=== PATIENT | female | born 1955 | race Caucasian/White ===

== ENCOUNTER 2019-04-15 16:52 | Emergency (ER) | payer MEDICARE ==
[~2019-04-15] VITALS: Ht 170 cm; Wt 98.3 kg
--- NOTE | 2019-04-15 19:10 | ED Lower Extremity ---
General Chief Complaint: Lower Extremity Stated Complaint: RT KNEE PAIN Nursing Triage Note: Patient ambulatory to ER with complaint of right knee pain. Patient states she had surgery on knee 10 years ago and has chronic pain to the right knee. She has not had any recent injuries to the knee Patient states she is almost out of her medications. Nursing Sepsis Screen: No Definite Risk Source: patient Exam Limitations: no limitations History of Present Illness Date Seen by Provider: Apr 15, 2019 Time Seen by Provider: 18:30 Initial Comments Here with report of chronic right knee pain that has been worse over the past couple of months. She is new to this area and has to get a new doctor. She has been told that she had arthritis of the knee. She's had previous arthroscopy. She has been taken Naprosyn 2 tabs in the morning and ibuprofen 800 mg in the evening as well as and Excedrin headache type medicine in the evening. Denies any new injury. Pain mostly on the lateral aspect of the right knee. Onset: other (chronic) Severity: moderate Pain/Injury Location: right knee Method of Injury: unknown Modifying Factors: Improves With Immobilization; Worse With Movement Allergies and Home Medications Allergies Coded Allergies: haloperidol (Verified Allergy, Severe, Anaphylaxis, 04/15/19) Home Medications Hydrocodone Bit/Acetaminophen 1 Tab Tab, 1 EACH PO Q4-6HR PRN for PAIN-MODERATE Prescribed by: JOHN VALENZUELA on 04/15/191913 Patient Home Medication List Home Medication List Reviewed: Yes Review of Systems Constitutional: see HPI; No chills, No fever Respiratory: no symptoms reported Cardiovascular: no symptoms reported Musculoskeletal: see HPI, joint pain, joint swelling Skin: no symptoms reported Past Couzqxi-Twwfbi-Cxtmqn Hx Past Med/Social Hx: Reviewed Nursing Past Med/Soc Hx Patient Social History Alcohol Use: Occasionally Uses Recreational Drug Use: No Smoking Status: Former Smoker Recent Foreign Travel: No Contact w/Someone Who Travel: No Recent Infectious Disease Expo: No Recent Hopitalizations: No Seasonal Allergies Seasonal Allergies: No Past Medical History Surgeries: Yes Appendectomy, Section, Gallbladder, Orthopedic Respiratory: No Cardiac: Yes Hypertension Neurological: Yes Neuropathy Genitourinary: No Gastrointestinal: Yes Gastroesophageal Reflux Musculoskeletal: No HEENT: No Cancer: No Psychosocial: No Integumentary: No Family Medical History Reviewed Nursing Family Hx Physical Exam Vital Signs Vital Signs - First Documented 04/15/19 17:19 Temp 35.6 Pulse 80 Resp 14 B/P (MAP) 150/93 (112) Pulse Ox 96 O2 Delivery Room Air Capillary Refill : Less Than 3 Seconds Height, Weight, BMI Height: '" Weight: lbs. oz. kg; 34.00 BMI Method: General Appearance: WD/WN, no apparent distress Cardiovascular: regular rate, rhythm, no murmur Respiratory: lungs clear, normal breath sounds Knees: right knee soft tissue tenderness (bilateral anterior), right knee swelling (mild effusion noted.), right knee other (lateral aspect with palpation and pressure. Negative anterior and posterior drawer.) Neurologic/Psychiatric: alert, oriented x 3 Skin: normal color, warm/dry Progress/Results/Core Measures Results/Orders My Orders Orders - JOHN VALENZUELA MD Knee, Right, 3 Views (04/15/19 18:38) Vital Signs/I&O 04/15/19 17:19 Temp 35.6 Pulse 80 Resp 14 B/P (MAP) 150/93 (112) Pulse Ox 96 O2 Delivery Room Air Blood Pressure Mean: 112 Progress Progress Note : Progress Note Seen and evaluated. X-ray right knee. I did discuss with her about follow-up and tbxb-tvq-mijughl medication dosing. Discharge home with return precautions. Patient verbalize understanding instructions and agreement with plan. Departure Impression Primary Impression: Osteoarthritis Qualified Codes: M17.11 - Unilateral primary osteoarthritis, right knee Disposition: 01 HOME, SELF-CARE Condition: Stable Departure-Patient Inst. Decision time for Depature: 19:10 Referrals: JANET GAR MD ,LOCAL PHYSICIAN (PCP) Primary Care Physician MADONNA BOWDEN MD, ROBERT F DO ZAFUTA, MICHAEL P MD Patient Instructions: Chronic Knee Pain (DC), Osteoarthritis (DC) Add. Discharge Instructions: All discharge instructions reviewed with patient and/or family. Voiced understanding. You may take tqce-xod-tiiccpy Naprosyn/Aleve 2 tablets in the morning and consider just taking 1 in the evening. If you're taking the Naprosyn/Aleve like this then do not take ibuprofen as they are similar medications. Do not exceed 2 tablets of the qehk-tlq-hfvdthh Naprosyn/Aleve every 12 hours. You may take Tylenol/acetaminophen 1000 mg every 6-8 hours as needed for breakthrough pain. Do not exceed 4000 mg in 24 hours. Do not take the Tylenol/acetaminophen if you are taking the prescribed pain medicine as they both have acetaminophen in them. You may use knee brace for comfort. It is very important that you find a local physician and also important that you follow-up with an orthopedist as you will likely need to have further evaluation of this knee. Return for worse pain, weakness, swelling, numbness or other concerns as needed. Scripts Hydrocodone Bit/Acetaminophen (Hydrocodone/Acetaminophen 5/325mg Tablet) 1 Tab Tab 1 EACH PO Q4-6HR PRN for PAIN-MODERATE MDD 10 for 3 Days, #10 TAB 0 Refills Prov: JOHN VALENZUELA MD 04/15/19 Work/School Note: Local Medical Staff Listing JOHN VALENZUELA MD Apr 15, 2019 19:10
[2019-04-15] MEDS ORDERED: ACHD5005 PO (19:14)
--- NOTE | 2019-04-15 19:24 | Diagnostic Imaging Report ---
EXAMINATION: Right knee at 7:11 p.m. INDICATION: Knee pain. Three views were obtained. There are no prior studies available for comparison. FINDINGS: There is no fracture, dislocation, or acute bony abnormality evident. There is moderate narrowing of all three compartments of the knee joint. Furthermore, there is a small 5 mm calcific density along the inferior margin of the medial femoral condyle on both the AP and oblique views. This finding is difficult to appreciate with certainty on the lateral view, but this could represent a small loose body within the knee joint. The soft tissues are unremarkable. There is perhaps a small joint effusion present. IMPRESSION: 1. There is no evidence for an acute bony abnormality. 2. There is moderate tricompartmental degenerative disease evident. There is also a question of a small loose body. If further imaging is desired, then either CT or MRI would be recommended. Dictated by: Dictated on workstation # [id number]
[2019-04-15 19:36] VITALS: BP 145/91
== END 2019-04-15 19:37 | disposition home or self-care (01) ==
LOC: ER 16:56
DX: M17.11 Unilateral primary osteoarthritis, right knee (principal); I10 Essential (primary) hypertension; G62.9 Polyneuropathy, unspecified; K21.9 Gastro-esophageal reflux disease without esophagitis; Z88.8 Allergy status to other drugs, medicaments and biological substances; Z87.891 Personal history of nicotine dependence; Z90.49 Acquired absence of other specified parts of digestive tract
CPT/HCPCS: 73562

== ENCOUNTER 2019-05-20 14:59 | Emergency (ER) | payer MEDICARE, OTHER ==
[~2019-05-20] VITALS: Ht 177.8 cm; Wt 91.3 kg
[~2019-05-20 14:59] MED LIST: ACHD5005 PO
[2019-05-20] MEDS ORDERED: ASPIRIN 81 MG CHEW (CHILDREN'S ASA) PO ONE (15:15)
[2019-05-20 15:18] LABS: BASOPHILS # (AUTO) 0.1 10^3/uL (0.0-0.1); BASOPHILS % (AUTO) 1 % (0-10); EOSINOPHILS # (AUTO) 0.3 10^3/uL (0.0-0.3); EOSINOPHILS % (AUTO) 2 % (0-10); HEMATOCRIT 45 % (35-52); HEMOGLOBIN 15.2 G/DL (11.5-16.0); LYMPHOCYTES # (AUTO) 3.6 X 10^3 (1.0-4.0); LYMPHOCYTES % (AUTO) 23 % (12-44); MEAN CORPUSCULAR HEMOGLOBIN 30 PG (25-34); MEAN CORPUSCULAR HGB CONC 34 G/DL (32-36); MEAN CORPUSCULAR VOLUME 89 FL (80-99); MEAN PLATELET VOLUME 10.1 FL (7.4-10.4); MONOCYTES # (AUTO) 1.1 X 10^3 (0.0-1.0); MONOCYTES % (AUTO) 7 % (0-12); NEUTROPHILS # (AUTO) 10.3 X 10^3 (1.8-7.8); NEUTROPHILS % (AUTO) 67 % (42-75); PLATELET COUNT 311 10^3/uL (130-400); RED CELL DISTRIBUTION WIDTH 15.4 % (10.0-14.5); WHITE BLOOD COUNT 15.3 10^3/uL (4.3-11.0)
--- NOTE | 2019-05-20 15:18 | NUR ---
NO MED LIST WITH PATINT AND UNSURE OF MEDS.
[2019-05-20 15:29] LABS: PROTHROMBIN TIME PATIENT 13.8 SEC (12.2-14.7)
[2019-05-20 15:37] LABS: BAND NEUTROPHILS 0 %; BASOPHILS % (MANUAL) 1 %; EOSINOPHILS % (MANUAL) 3 %; LYMPHOCYTES % (MANUAL) 29 %; MONOCYTES % (MANUAL) 4 %; NEUTROPHILS % (MANUAL) 63 %; RBC MORPH NORMAL
[2019-05-20 15:41] LABS: ALANINE AMINOTRANSFERASE 51 U/L (0-55); ALBUMIN 4.3 GM/DL (3.2-4.5); ALKALINE PHOSPHATASE 135 U/L (40-136); BUN/CREATININE RATIO 13; CALCIUM 9.9 MG/DL (8.5-10.1); CARBON DIOXIDE 25 MMOL/L (21-32); CHLORIDE 103 MMOL/L (98-107); CREATININE SERUM 1.63 MG/DL (0.60-1.30); GFR ESTIMATED 32; GLUCOSE 137 MG/DL (70-105); LIPASE 15 U/L (8-78); POTASSIUM 3.6 MMOL/L (3.6-5.0); SODIUM 140 MMOL/L (135-145); TOTAL PROTEIN 7.6 GM/DL (6.4-8.2)
[2019-05-20 16:35] LABS: BILIRUBIN,TOTAL 0.6 MG/DL (0.1-1.0)
--- NOTE | 2019-05-20 16:42 | Diagnostic Imaging Report ---
INDICATION: Anterior chest heaviness. TIME OF EXAM: 4:13 p.m. COMPARISON: No prior studies are available for comparison. FINDINGS: The heart size is normal. The pulmonary vascularity is unremarkable. The lungs are clear. No infiltrate, effusion or pneumothorax is detected. IMPRESSION: No acute cardiopulmonary process is detected. Dictated by: Dictated on workstation # [id number]
[2019-05-20] MEDS ORDERED: NS IV 1000 ML 1,000 ML IV ONE (17:06)
--- NOTE | 2019-05-20 18:32 | ED Chest Pain ---
General Chief Complaint: Chest Pain Stated Complaint: CHEST PAIN Nursing Triage Note: AMB TO ROOM CAME FROM DR NEGRO OFFICE WAS THERE FOR MEDICATION CHANGE. Nursing Sepsis Screen: No Definite Risk Source: patient Exam Limitations: no limitations History of Present Illness Date Seen by Provider: May 20, 2019 Time Seen by Provider: 15:01 Initial Comments This 64-year-old woman presents to the emergency room as referred by Dr. NEGRO's clinic for evaluation of chest pain. She had an episode of chest pressure last night radiating up toward her left neck. She reports her ears felt like they were "going to burst" at the time of the pain. The pain lasted 1-2 hours. She then had another episode today while she was at Dr. NEGRO's office. Pain had subsided by the time of my evaluation. Patient has no history of coronary artery disease and has never had any cardiac workup. She quit smoking about one year ago. She has hypertension. Allergies and Home Medications Allergies Coded Allergies: haloperidol (Verified Allergy, Severe, Anaphylaxis, 04/15/19) Home Medications Hydrocodone Bit/Acetaminophen 1 Tab Tab, 1 EACH PO Q4-6HR PRN for PAIN-MODERATE Prescribed by: JOHN VALENZUELA on 04/15/19 1914 Tramadol HCl 50 Mg Tablet, 50 MG PO Q6H PRN for PAIN-SEVERE (8-10) Prescribed by: ASIA CLEANING on 05/20/19 1835 Patient Home Medication List Home Medication List Reviewed: Yes Review of Systems Review of Systems Constitutional: no symptoms reported EENTM: No Symptoms Reported Respiratory: No Symptoms Reported Cardiovascular: See HPI Gastrointestinal: No Symptoms Reported Genitourinary: No Symptoms Reported Musculoskeletal: no symptoms reported Skin: no symptoms reported Psychiatric/Neurological: No Symptoms Reported Endocrine: No Symptoms Reported Past Oughsuy-Nwifgo-Hxssiq Hx Past Med/Social Hx: Reviewed and Corrections made Patient Social History Alcohol Use: Denies Use Recreational Drug Use: No Smoking Status: Former Smoker Recent Foreign Travel: No Contact w/Someone Who Travel: No Recent Infectious Disease Expo: No Recent Hopitalizations: No Seasonal Allergies Seasonal Allergies: No Past Medical History Surgeries: Yes Appendectomy, Section, Gallbladder, Orthopedic, Renal (Ureteral stent, basket retrieval, lithotripsy) Respiratory: No Cardiac: Yes Hypertension Neurological: Yes Neuropathy Genitourinary: Yes Kidney Stones Gastrointestinal: Yes Gastroesophageal Reflux Musculoskeletal: No HEENT: No Cancer: No Psychosocial: No Integumentary: No Physical Exam Vital Signs Vital Signs - First Documented 05/20/19 05/20/19 15:02 19:00 Temp 36.5 Pulse 87 Resp 18 B/P (MAP) 117/72 (87) Pulse Ox 98 O2 Delivery Room Air Capillary Refill : Less Than 3 Seconds Height, Weight, BMI Height: '" Weight: lbs. oz. 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 Norm as Tested Skin: Normal Color, Warm/Dry Progress/Results/Core Measures Results/Orders Lab Results Laboratory Tests Test 05/20/19 15:08 05/20/19 17:09 Range/Units White Blood Count 15.3 H 4.3-11.0 10^3/uL Red Blood Count 5.11 4.35-5.85 10^6/uL Hemoglobin 15.2 11.5-16.0 G/DL Hematocrit 45 35-52 % Mean Corpuscular Volume 89 80-99 FL Mean Corpuscular Hemoglobin 30 25-34 PG Mean Corpuscular Hemoglobin Concent 34 32-36 G/DL Red Cell Distribution Width 15.4 H 10.0-14.5 % Platelet Count 311 130-400 10^3/uL Mean Platelet Volume 10.1 7.4-10.4 FL Neutrophils (%) (Auto) 67 42-75 % Lymphocytes (%) (Auto) 23 12-44 % Monocytes (%) (Auto) 7 0-12 % Eosinophils (%) (Auto) 2 0-10 % Basophils (%) (Auto) 1 0-10 % Neutrophils # (Auto) 10.3 H 1.8-7.8 X 10^3 Lymphocytes # (Auto) 3.6 1.0-4.0 X 10^3 Monocytes # (Auto) 1.1 H 0.0-1.0 X 10^3 Eosinophils # (Auto) 0.3 0.0-0.3 10^3/uL Basophils # (Auto) 0.1 0.0-0.1 10^3/uL Neutrophils % (Manual) 63 % Lymphocytes % (Manual) 29 % Monocytes % (Manual) 4 % Eosinophils % (Manual) 3 % Basophils % (Manual) 1 % Band Neutrophils 0 % Blood Morphology Comment NORMAL Prothrombin Time 13.8 12.2-14.7 SEC INR Comment 1.0 0.8-1.4 Activated Partial Thromboplast Time 35 24-35 SEC Sodium Level 140 135-145 MMOL/L Potassium Level 3.6 3.6-5.0 MMOL/L Chloride Level 103 98-107 MMOL/L Carbon Dioxide Level 25 21-32 MMOL/L Anion Gap 12 5-14 MMOL/L Blood Urea Nitrogen 22 H 7-18 MG/DL Creatinine 1.63 H 0.60-1.30 MG/DL Estimat Glomerular Filtration Rate 32 BUN/Creatinine Ratio 13 Glucose Level 137 H 70-105 MG/DL Calcium Level 9.9 8.5-10.1 MG/DL Corrected Calcium 9.7 8.5-10.1 MG/DL Magnesium Level 2.0 1.6-2.4 MG/DL Total Bilirubin 0.6 0.1-1.0 MG/DL Aspartate Amino Transf (AST/SGOT) 25 5-34 U/L Alanine Aminotransferase (ALT/SGPT) 51 0-55 U/L Alkaline Phosphatase 135 40-136 U/L Myoglobin 108.4 H 10.0-92.0 NG/ML Troponin I < 0.028 < 0.028 <0.028 NG/ML C-Reactive Protein High Sensitivity 1.34 H 0.00-0.50 MG/DL B-Type Natriuretic Peptide < 10.0 <100.0 PG/ML Total Protein 7.6 6.4-8.2 GM/DL Albumin 4.3 3.2-4.5 GM/DL Lipase 15 13 8-78 U/L My Orders Orders - TODD HUYNH MD Hs C Reactive Protein (05/20/19 16:45) Lipase (05/20/19 16:58) Troponin I (05/20/19 17:08) Ed Iv/Invasive Line Start (05/20/19 17:06) Ns Iv 1000 Ml (Sodium Chloride 0.9%) (05/20/19 17:06) Medications Given in ED Vital Signs/I&O 05/20/19 05/20/19 15:02 19:00 Temp 36.5 Pulse 87 70 Resp 18 18 B/P (MAP) 117/72 (87) 133/91 Pulse Ox 98 94 O2 Delivery Room Air Blood Pressure Mean: 87 POS Progress Progress Note : Progress Note Cardiac workup was unremarkable. Patient had leukocytosis likely due to recent steroid injection at her orthopedic office. Repeat troponin was negative. Renal insufficiency was noted and a liter of IV fluid was administered. I stressed the importance of further evaluation and consultation with a cardiolog ist. Patient is agreeable to follow-up. She also needs to follow-up with Dr. NEGRO regarding her renal function. She was advised to avoid NSAID medications and was prescribed a few Ultram to bridge her pain management. Initial ECG Impression Date: May 20, 2019 Initial ECG Impression Time: 15:05 Initial ECG Rate: 85 Initial ECG Rhythm: Normal Sinus Initial ECG Intervals: Normal Initial ECG Impression: Normal Comment Normal sinus rhythm with no ST elevation or depression. No abnormal intervals or axis deviation. Diagnostic Imaging Diagonstic Imaging: Xray Plain Films/CT/US/NM/MRI: chest Comments Chest x-ray viewed by me and report reviewed. See report below: NAME: NOAH TORRES [facility] REC#: [id number] PT STATUS: REG ER : 1955 PHYSICIAN: ASIA CLEANING APRN ADMIT DATE: 05/20/19/ER Signed Date of Exam:05/20/19 CHEST 1 VIEW, AP/PA ONLY INDICATION: Anterior chest heaviness. TIME OF EXAM: 4:13 p.m. COMPARISON: No prior studies are available for comparison. FINDINGS: The heart size is normal. The pulmonary vascularity is unremarkable. The lungs are clear. No infiltrate, effusion or pneumothorax is detected. IMPRESSION: No acute cardiopulmonary process is detected. Dictated by: Dictated on workstation # [id number] Dict: 05/20/19 1627 Trans: 05/20/194 [id number] Interpreted by: JENNY MATTHEWS MD Electronically signed by: JENNY MATTHEWS MD 05/20/19 1814 Departure Impression Primary Impression: Chest pain Qualified Codes: R07.9 - Chest pain, unspecified Additional Impression: Renal insufficiency Disposition: 01 HOME, SELF-CARE Condition: Improved Departure-Patient Inst. Decision time for Depature: 18:20 Referrals: TRINITY NEGRO DO (PCP) Primary Care Physician Patient Instructions: Chest Pain (DC) Scripts Tramadol HCl (Ultram) 50 Mg Tablet 50 MG PO Q6H PRN for PAIN-SEVERE (8-10), #10 TAB Prov: ASIA CLEANING BOOKING PRIZER 05/20/19 Copy Copies To 1: TRINITY NEGRO DO Copies To 2: MARIA GUADALUPE BEAL MD, JOSHUA T MD May 20, 2019 18:32 POS
[2019-05-20] MEDS ORDERED: TRAM-42 PO (18:35)
[2019-05-20 19:00] VITALS: BP 133/91
== END 2019-05-20 19:00 | disposition home or self-care (01) ==
LOC: EDUNIT# 14:59 → ER 15:00
DX: R07.9 Chest pain, unspecified (principal); N28.9 Disorder of kidney and ureter, unspecified; I10 Essential (primary) hypertension; G62.9 Polyneuropathy, unspecified; K21.9 Gastro-esophageal reflux disease without esophagitis; Z87.442 Personal history of urinary calculi; Z88.8 Allergy status to other drugs, medicaments and biological substances; Z87.891 Personal history of nicotine dependence; Z90.49 Acquired absence of other specified parts of digestive tract
CPT/HCPCS: 36415; 71045; 80053; 83690; 83735; 83874; 83880; 84484; 85007; 85025; 85027; 85610; 85730; 86141; 93005; 93041; 96360; 96361

== ENCOUNTER 2019-08-12 23:00 | Emergency (ER) | payer MEDICARE, OTHER ==
[~2019-08-12] VITALS: Ht 170 cm; Wt 91.3 kg
[~2019-08-12 23:00] MED LIST changes: +TRAM-42 PO
[2019-08-12] MEDS ORDERED: LACTATED RINGERS 1,000 ML IV ONE (23:07)
[2019-08-12 23:24] LABS: BASOPHILS # (AUTO) 0.1 10^3/uL (0.0-0.1); BASOPHILS % (AUTO) 1 % (0-10); EOSINOPHILS # (AUTO) 0.2 10^3/uL (0.0-0.3); EOSINOPHILS % (AUTO) 2 % (0-10); HEMATOCRIT 36 % (35-52); LYMPHOCYTES # (AUTO) 2.8 X 10^3 (1.0-4.0); LYMPHOCYTES % (AUTO) 30 % (12-44); MEAN CORPUSCULAR HEMOGLOBIN 30 PG (25-34); MEAN CORPUSCULAR HGB CONC 33 G/DL (32-36); MEAN CORPUSCULAR VOLUME 90 FL (80-99); MEAN PLATELET VOLUME 9.7 FL (7.4-10.4); MONOCYTES # (AUTO) 0.8 X 10^3 (0.0-1.0); MONOCYTES % (AUTO) 9 % (0-12); NEUTROPHILS # (AUTO) 5.6 X 10^3 (1.8-7.8); NEUTROPHILS % (AUTO) 59 % (42-75); PLATELET COUNT 234 10^3/uL (130-400); RED CELL DISTRIBUTION WIDTH 14.1 % (10.0-14.5); WHITE BLOOD COUNT 9.5 10^3/uL (4.3-11.0)
[2019-08-12 23:44] LABS: ALANINE AMINOTRANSFERASE 20 U/L (0-55); ALBUMIN 3.9 GM/DL (3.2-4.5); ALKALINE PHOSPHATASE 172 U/L (40-136); BILIRUBIN,TOTAL 0.3 MG/DL (0.1-1.0); BUN/CREATININE RATIO 13; CALCIUM 8.5 MG/DL (8.5-10.1); CARBON DIOXIDE 19 MMOL/L (21-32); CHLORIDE 109 MMOL/L (98-107); CREATININE SERUM 0.83 MG/DL (0.60-1.30); GFR ESTIMATED > 60; GLUCOSE 101 MG/DL (70-105); SODIUM 141 MMOL/L (135-145); TOTAL PROTEIN 6.7 GM/DL (6.4-8.2)
[2019-08-12] MEDS ORDERED: KETOROLAC 30 MG/ML VIAL IVP STA (23:54)
--- NOTE | 2019-08-12 23:54 | ED Fall/Injury ---
General Chief Complaint: Trauma-Non Activation Stated Complaint: FALL Nursing Triage Note: fall from standing position. hematoma to left forehead. no loc. Source: patient Exam Limitations: no limitations History of Present Illness Date Seen by Provider: Aug 12, 2019 Time Seen by Provider: 23:03 Initial Comments Here with report of fall from a standing position while at the bar. She was apparently drinking margaritas throughout the evening. She had gone to the bathroom at a new bar that she had gone to and got dizzy and fell and hit her head over the left brow. No bleeding. No loss of consciousness. Still a little dizzy now. EMS was summoned. She was able to walk with assistance to the cot but was a little dizzy. Did have episode of nausea and vomiting. She was given Zofran 4 mg IV by EMS and the nausea has improved. Denies other injury. Denies loss of consciousness. Arrives in c-collar. Location Injury Occurred: 505 Occurred: just prior to arrival Severity: mild Injuries/Pain Location: head Context: lost balance Loss of Consciousness: no loss of consciousness Modifying Factors: Improves With Rest Associated Symptoms (Fall): No Abdominal Pain, No Chest Pain, No Confusion; Headache, Nausea/Vomiting; No Neck Pain, No Shortness of Air Allergies and Home Medications Allergies Coded Allergies: haloperidol (Verified Allergy, Severe, Anaphylaxis, 04/15/19) Home Medications Hydrocodone Bit/Acetaminophen 1 Tab Tab, 1 EACH PO Q4-6HR PRN for PAIN-MODERATE Prescribed by: JOHN VALENZUELA on 04/15/191913 Tramadol HCl 50 Mg Tablet, 50 MG PO Q6H PRN for PAIN-SEVERE (8-10) Prescribed by: ASIA CLEANING on 05/20/19 183 Patient Home Medication List Home Medication List Reviewed: Yes Review of Systems Review of Systems Constitutional: see HPI; No chills, No fever Eyes: No Symptoms Reported; Denies Blurred Vision, Denies Vision Changes Ears, Nose, Mouth, Throat: no symptoms reported Respiratory: no symptoms reported Gastrointestinal: see HPI Musculoskeletal: No back pain, No neck pain Skin: change in color, lesions Psychiatric/Neurological: See HPI Past Scfpwad-Iyhzra-Hbnpby Hx Past Med/Social Hx: Reviewed Nursing Past Med/Soc Hx Patient Social History Alcohol Use: Rarely Uses Alcohol Beverage of Choice: Other Recreational Drug Use: No Recent Foreign Travel: No Contact w/Someone Who Travel: No Recent Infectious Disease Expo: No Recent Hopitalizations: No Physical Abuse: No Sexual Abuse: No Mistreated: No Fear: No Immunizations Up To Date Tetanus Booster (TDap): Unknown Seasonal Allergies Seasonal Allergies: No Past Medical History Surgeries: Yes Appendectomy, Section, Gallbladder, Orthopedic, Renal Respiratory: No Cardiac: Yes Hypertension Neurological: Yes Neuropathy : No PHARMACY SERVICES DIRECTOR History: Menopausal Genitourinary: Yes Kidney Stones Gastrointestinal: Yes Gastroesophageal Reflux Musculoskeletal: No HEENT: No Cancer: No Psychosocial: No Integumentary: No Family Medical History Reviewed Nursing Family Hx Physical Exam Vital Signs Vital Signs - First Documented 08/12/19 23:00 Temp 36.6 Pulse 55 Resp 18 B/P (MAP) 137/79 (98) Pulse Ox 97 O2 Delivery Room Air Capillary Refill : Less Than 3 Seconds Height, Weight, BMI Height: '" Weight: lbs. oz. kg; 31.00 BMI Method: General Appearance: WD/WN, mild distress HEENT: PERRL/EOMI, pharynx normal, other (4x6 cm hematoma over the left brow) Neck: non-tender, supple Cardiovascular: regular rate, rhythm, no murmur Respiratory: lungs clear, normal breath sounds Gastrointestinal: non tender, soft Back: normal inspection, no CVA tenderness, no vertebral tenderness Extremities: non-tender, normal inspection Neurologic/Psychiatric: alert, oriented x 3 Skin: warm/dry, ecchymosis (ecchymotic area over her left brow as described above), other (. No lacerations noted.) Progress/Results/Core Measures Results/Orders Lab Results Laboratory Tests Test 08/12/19 23:05 Range/Units White Blood Count 9.5 4.3-11.0 10^3/uL Red Blood Count 4.02 L 4.35-5.85 10^6/uL Hemoglobin 12.0 11.5-16.0 G/DL Hematocrit 36 35-52 % Mean Corpuscular Volume 90 80-99 FL Mean Corpuscular Hemoglobin 30 25-34 PG Mean Corpuscular Hemoglobin Concent 33 32-36 G/DL Red Cell Distribution Width 14.1 10.0-14.5 % Platelet Count 234 130-400 10^3/uL Mean Platelet Volume 9.7 7.4-10.4 FL Neutrophils (%) (Auto) 59 42-75 % Lymphocytes (%) (Auto) 30 12-44 % Monocytes (%) (Auto) 9 0-12 % Eosinophils (%) (Auto) 2 0-10 % Basophils (%) (Auto) 1 0-10 % Neutrophils # (Auto) 5.6 1.8-7.8 X 10^3 Lymphocytes # (Auto) 2.8 1.0-4.0 X 10^3 Monocytes # (Auto) 0.8 0.0-1.0 X 10^3 Eosinophils # (Auto) 0.2 0.0-0.3 10^3/uL Basophils # (Auto) 0.1 0.0-0.1 10^3/uL Sodium Level 141 135-145 MMOL/L Potassium Level 3.0 L 3.6-5.0 MMOL/L Chloride Level 109 H 98-107 MMOL/L Carbon Dioxide Level 19 L 21-32 MMOL/L Anion Gap 13 5-14 MMOL/L Blood Urea Nitrogen 11 7-18 MG/DL Creatinine 0.83 0.60-1.30 MG/DL Estimat Glomerular Filtration Rate > 60 BUN/Creatinine Ratio 13 Glucose Level 101 70-105 MG/DL Calcium Level 8.5 8.5-10.1 MG/DL Corrected Calcium 8.6 8.5-10.1 MG/DL Total Bilirubin 0.3 0.1-1.0 MG/DL Aspartate Amino Transf (AST/SGOT) 21 5-34 U/L Alanine Aminotransferase (ALT/SGPT) 20 0-55 U/L Alkaline Phosphatase 172 H 40-136 U/L Total Protein 6.7 6.4-8.2 GM/DL Albumin 3.9 3.2-4.5 GM/DL Serum Alcohol 140 H <10 MG/DL My Orders Orders - JOHN VALENZUELA MD Ct Head/Cervical Spine Wo (08/12/19 23:07) Cbc With Automated Diff (08/12/19 23:07) Comprehensive Metabolic Panel (08/12/19 23:07) Ed Iv/Invasive Line Start (08/12/19 23:07) Lactated Ringers (Lr 1000 Ml Iv Solution (08/12/19 23:07) Alcohol (08/12/19 23:07) Ondansetron Injection (Zofran Injectio (2/12/20 00:00) Ketorolac Injection (Toradol Injection) (08/12/19 23:54) Medications Given in ED Current Medications Medications Dose Ordered Sig/Evelyn Route Start Time Stop Time Status Last Admin Dose Admin Lactated Ringer's 1,000 ml @ 0 mls/hr Q0M ONCE IV 08/12/19 23:07 08/12/19 23:10 DC 08/12/19 23:19 0 MLS/HR Ondansetron HCl 4 mg ONCE ONCE IVP 08/13/19 00:00 08/13/19 00:01 DC 08/13/19 00:00 4 MG Vital Signs/I&O 08/12/19 23:00 Temp 36.6 Pulse 55 Resp 18 B/P (MAP) 137/79 (98) Pulse Ox 97 O2 Delivery Room Air Blood Pressure Mean: 98 Progress Progress Note : Progress Note Seen and evaluated. IV by EMS. Labs and LR [address] head and C- spine ordered. Monitor patient. 2354: C collar removed. Full range of motion without pain after. No step-off or deformity noted. No pain on palpation. Does have headache. No obvious intracranial hemorrhage noted on CT. Toradol 30 mg IV and Zofran 4 mg IV for mild residual nausea. Pending final CT results. 1233: CT is negative. Discharged home with return precautions. Patient verbalize understanding instructions and agreement with plan. Diagnostic Imaging Diagonstic Imaging: CT Plain Films/CT/US/NM/MRI: c-spine, head Comments Large left frontal scalp hematoma. No skull fracture or intracranial hemorrhage. Cervical spondylosis. No evidence of cervical fracture. Reviewed: Reviewed Night [facility] Study, Reviewed by Me Departure Impression Primary Impression: Traumatic hematoma of face Qualified Codes: S00.83XA - Contusion of other part of head, initial encounter Additional Impression: Head injury Qualified Codes: S09.90XA - Unspecified injury of head, initial encounter Disposition: HOME, SELF-CARE Condition: Improved Departure-Patient Inst. Decision time for Depature: 00:08 Referrals: TRINITY NEGRO DO (PCP) Primary Care Physician NO,LOCAL PHYSICIAN (Family) Primary Care Physician Patient Instructions: Closed Head Injury (DC), Contusion (DC) Add. Discharge Instructions: All discharge instructions reviewed with patient and/or family. Voiced understanding. You may take Tylenol or ibuprofen as needed for pain per package directions. Use ice packs over facial contusion 20 minutes per hour as needed for the next one to 2 days to reduce swelling and pain. Drink plenty of fluids and eat a normal diet. Avoid alcohol. Return for worse pain, vomiting, weakness, vision or balance problems or other concerns as needed. Images Head/Face 1 - Moderate, Contusion, Swelling JOHN VALENZUELA MD Aug 12, 2019 23:54
[2019-08-13] MEDS ORDERED: ONDANSETRON 4 MG/2 ML (SDV) Z0FRAN IVP ONE
[2019-08-13 00:39] VITALS: BP 172/82
--- NOTE | 2019-08-13 07:12 | Diagnostic Imaging Report ---
PROCEDURE: CT head and CT cervical spine without contrast. TECHNIQUE: Multiple contiguous axial images were obtained through the brain and cervical spine without the use of intravenous contrast. Sagittal and coronal reformations through the cervical spine were then performed. Auto Exposure Controls were utilized during the CT exam to meet ALARA standards for radiation dose reduction. INDICATION: Fall. Hematoma of the left frontal scalp. FINDINGS: CT HEAD: There is no intracranial hemorrhage. No mass effect. No extra-axial fluid collection. Ventricles and cortical gyral pattern are normal. There is large scalp hematoma noted over the left supraorbital region. There are no calvarial fractures demonstrated. Paranasal sinuses were visualized are clear as are the mastoid air cells. There is noted dental caries with cystic change about the root of the remaining incisor tooth on the left. IMPRESSION: 1. Large left frontal scalp hematoma with no intracranial abnormalities. 2. Dental caries. CT cervical spine: Sagittal reformatted images show loss of normal lordotic curve. No evidence of compression fractures. There is moderate spinal stenosis from C4 through C7. Odontoid is intact. The atlantoaxial joints in good alignment. Soft tissues appear normal. IMPRESSION: Advanced cervical spondylosis with no acute abnormalities. Dictated by: Dictated on workstation # [id number]
--- OUTSIDE RECORDS SUMMARY | 2019-08-22 20:50 | XMS REPORT | Continuity of Care Document ---
Author Organization Unknown Address Unknown Phone Unavailable Allergies Active Description Code Type Severity Reaction Onset Reported/Identified Relationship to Patient Clinical Status Yes haloperidol [id number] Drug Aller gy Severe Anaphylaxis 04/15/2019 Medications There is no data. Problems Date Dx Coded Attending Type Code Diagnosis Diagnosed By 04/15/2019 JOHN VALENZUELA MD, Ot G62.9 POLYNEUROPATHY, UNSPECIFIED 04/15/2019 JOHN VALENZUELA MD Ot I10 ESSENTIAL (PRIMARY) HYPERTENSION 04/15/2019 JOHN VALENZUELA MD Ot K21.9 GASTRO-ESOPHAGEAL REFLUX DISEASE WITHOUT 04/15/2019 JOHN VALENZUELA MD Ot M17.11 UNILATERAL PRIMARY OSTEOARTHRITIS, RIGHT 04/15/2019 JOHN VALENZUELA MD Ot M25.561 PAIN IN RIGHT KNEE 04/15/2019 JOHN VALENZUELA MD Ot Z87.891 PERSONAL HISTORY OF NICOTINE DEPENDENCE 04/15/2019 JOHN VALENZUELA MD Ot Z88.8 ALLERGY STATUS TO OTH DRUG/MEDS/BIOL SUB 04/15/2019 JOHN VALENZUELA MD Ot Z90.49 ACQUIRED ABSENCE OF OTHER SPECIFIED PART 04/18/2019 JOHN VALENZUELA MD Ot G62.9 POLYNEUROPATHY, UNSPECIFIED 04/18/2019 JOHN VALENZUELA MD Ot I10 ESSENTIAL (PRIMARY) HYPERTENSION 04/18/2019 JOHN VALENZUELA MD Ot K21.9 GASTRO-ESOPHAGEAL REFLUX DISEASE WITHOUT 04/18/2019 JOHN VALENZUELA MD Ot M17.11 UNILATERAL PRIMARY OSTEOARTHRITIS, RIGHT 04/18/2019 JOHN VALENZUELA MD Ot M25.561 PAIN IN RIGHT KNEE 04/18/2019 JOHN VALENZUELA MD Ot Z87.891 PERSONAL HISTORY OF NICOTINE DEPENDENCE 04/18/2019 JOHN VALENZUELA MD Ot Z88.8 ALLERGY STATUS TO OTH DRUG/MEDS/BIOL SUB 04/18/2019 JOHN VALENZUELA MD Ot Z90.49 ACQUIRED ABSENCE OF OTHER SPECIFIED PART 05/20/2019 TODD HUYNH MD Ot G62.9 POLYNEUROPATHY, UNSPECIFIED 05/20/2019 TODD HUYNH MD T Ot I10 ESSENTIAL (PRIMARY) HYPERTENSION 05/20/2019 TODD HUYNH MD Ot K21.9 GASTRO-ESOPHAGEAL REFLUX DISEASE WITHOUT 05/20/2019 TODD HUYNH MD Ot N28.9 DISORDER OF KIDNEY AND URETER, UNSPECIFI 05/20/2019 TODD HUYNH MD Ot R07.9 CHEST PAIN, UNSPECIFIED 05/20/2019 TODD HUYNH MD Ot Z87.442 PERSONAL HISTORY OF URINARY CALCULI 05/20/2019 TODD HUYNH MD Ot Z87.891 PERSONAL HISTORY OF NICOTINE DEPENDENCE 05/20/2019 TODD HUYNH MD T Ot Z88.8 ALLERGY STATUS TO OTH DRUG/MEDS/BIOL SUB 05/20/2019 TODD HUYNH MD Ot Z90.49 ACQUIRED ABSENCE OF OTHER SPECIFIED PART 05/22/2019 TODD HUYNH MD Ot G62.9 POLYNEUROPATHY, UNSPECIFIED 05/22/2019 TODD HUYNH MD Ot I10 ESSENTIAL (PRIMARY) HYPERTENSION 05/22/2019 TODD HUYNH MD Ot K21.9 GASTRO-ESOPHAGEAL REFLUX DISEASE WITHOUT 05/22/2019 TODD HUYNH MD Ot N28.9 DISORDER OF KIDNEY AND URETER, UNSPECIFI 05/22/2019 TODD HUYNH MD Ot R07.9 CHEST PAIN, UNSPECIFIED 05/22/2019 TODD HUYNH MD Ot Z87.442 PERSONAL HISTORY OF URINARY CALCULI 05/22/2019 TODD HUYNH MD T Ot Z87.891 PERSONAL HISTORY OF NICOTINE DEPENDENCE 05/22/2019 TODD HUYNH MD T Ot Z88.8 ALLERGY STATUS TO OTH DRUG/MEDS/BIOL SUB 05/22/2019 TODD HUYNH MD Ot Z90.49 ACQUIRED ABSENCE OF OTHER SPECIFIED PART 05/27/2019 TODD HUYNH MD, Ot G62.9 POLYNEUROPATHY, UNSPECIFIED 05/27/2019 TODD HUYNH MD, Ot I10 ESSENTIAL (PRIMARY) HYPERTENSION 05/27/2019 TODD HUYNH MD, Ot K21.9 GASTRO-ESOPHAGEAL REFLUX DISEASE WITHOUT 05/27/2019 TODD HUYNH MD, Ot N28.9 DISORDER OF KIDNEY AND URETER, UNSPECIFI 05/27/2019 TODD HUYNH MD, Ot R07.9 CHEST PAIN, UNSPECIFIED 05/27/2019 TODD HUYNH MD, Ot Z87.442 PERSONAL HISTORY OF URINARY CALCULI 05/27/2019 TODD HUYNH MD, Ot Z87.891 PERSONAL HISTORY OF NICOTINE DEPENDENCE 05/27/2019 TODD HUYNH MD, Ot Z88.8 ALLERGY STATUS TO OTH DRUG/MEDS/BIOL SUB 05/27/2019 TODD HUYNH MD, Ot Z90.49 ACQUIRED ABSENCE OF OTHER SPECIFIED PART 08/22/2019 JOHN VALENZUELA MD, Ot R07.81 PLEURODYNIA 08/22/2019 JOHN VALENZUELA MD, Ot S22.42XA MULTIPLE FRACTURES OF RIBS, LEFT SIDE, I 08/22/2019 JOHN VALENZUELA MD, Ot W19.XXXA UNSPECIFIED FALL, INITIAL ENCOUNTER 08/22/2019 JOHN VALENZUELA MD, Ot Y92.[address] 08/22/2019 JOHN VALENZUELA MD, Ot Z88.8 ALLERGY STATUS TO OTH DRUG/MEDS/BIOL SUB Procedures There is no data. Results Test Result Range Complete blood count (CBC) with automate d white blood cell (WBC) differential - 05/20/19 15:08 Blood leukocytes automated count (number/volume) 15.3 10*3/uL 4.3-11.0 Blood erythrocytes automated count (number/volume) 5.11 10*6/uL 4.35-5.85 Venous blood hemoglobin measurement (mass/volume) 15.2 g/dL 11.5-16.0 Blood hematocrit (volume fraction) 45 % 35-52 Automated erythrocyte mean corpuscular volume 89 [ foz_us] 80-99 Automated erythrocyte mean corpuscular h emoglobin (mass per erythrocyte) 30 pg 25-34 Automated erythrocyte mean corpuscular h emoglobin concentration measurement (mass/volume) 34 g/dL 32-36 Automated erythrocyte distribution width ratio 15. 4 % 10.0- 14.5 Automated blood platelet count (count/volume) 311 10*3/uL 130-400 Automated blood platelet mean volume measurement 10.1 [foz_us] 7.4-10.4 Automated blood neutrophils/100 leukocytes 67 % 42-75 Automated blood lymphocytes/100 leukocytes 23 % 12-44 Blood monocytes/100 leukocytes 7 % 0-12 Automated blood eosinophils/100 leukocytes 2 % 0-10 Automated blood basophils/100 leukocytes 1 % 0-10 Blood neutrophils automated count (number/volume) 10.3 10*3 1.8-7.8 Blood lymphocytes automated count (number/volume) 3.6 10*3 1.0-4.0 Blood monocytes automated count (number/volume) 1. 1 10*3 0.0-1.0 Automated eosinophil count 0.3 10*3/uL 0 .0-0.3 Automated blood basophil count (count/volume) 0.1 10*3/uL 0.0-0.1 PT panel in platelet poor plasma by coag ulation assay - 05/20/19 15:08 Prothrombin time (PT) in platelet poor plasma by coagu lation assay 13.8 s 12.2-14.7 INR in platelet poor plasma or blood by coagulation as say 1.0 0.8-1.4 Activated partial thromboplastin time (a PTT) in platelet poor plasma bycoagulation assay - 05/20/19 15:08 Activated partial thromboplastin time (a PTT) in platelet poor plasma bycoagulation assay 35 s 24-35 Manual absolute plasma cell count - 05/02 03/20 15:08 Blood monocytes/100 leukocytes 4 % NRG Manual blood segmented neutrophils/100 leukocytes 63 % NRG Blood band neutrophils/100 leukocytes 0 % NRG Manual blood lymphocytes/100 leukocytes 29 % NRG Manual eosinophils/100 leukocytes in nose 3 % NRG Manual blood basophils/100 leukocytes 1 % NRG Blood erythrocyte morphology finding identification NORMAL NR Comprehensive metabolic panel - 05/20/19 15:08 Serum or plasma sodium measurement (moles/volume) 140 mmol/L 135-145 Serum or plasma potassium measurement (moles/volume) 3.6 mmol/L 3.6-5.0 Serum or plasma chloride measurement (moles/volume) 103 mmol/L 98-107 Carbon dioxide 25 mmol/L 21-32 Serum or plasma anion gap determination (moles/volume) 12 mmol/L 5-14 Serum or plasma urea nitrogen measurement (mass/volume ) 22 mg/dL 7-18 Serum or plasma creatinine measurement (mass/volume) 1.63 mg/dL 0.60-1.30 Serum or plasma urea nitrogen/creatinine mass ratio 13 NRG Serum or plasma creatinine measurement w ith calculation of estimated glomerular filtration rate 32 NRG Serum or plasma glucose measurement (mass/volume) 137 mg/dL 70-105 Serum or plasma calcium measurement (mass/volume) 9.9 mg/dL 8.5-10.1 Serum or plasma total bilirubin measurement (mass/volu me) 0.6 mg/dL 0.1-1.0 Serum or plasma alkaline phosphatase abbie surement (enzymatic activity/volume) 135 U/L 40-136 Serum or plasma aspartate aminotransfera se measurement (enzymatic activity/volume) 25 U/L 5-34 Serum or plasma alanine aminotransferase measurement (enzymatic activity/volume) 51 U/L 0-55 Serum or plasma protein measurement (mass/volume) 7.6 g/dL 6.4-8.2 Serum or plasma albumin measurement (mass/volume) 4.3 g/dL 3.2-4.5 CALCIUM CORRECTED 9.7 mg/dL 8.5-10.1 Magnesium - 05/20/19 15:08 Magnesium 2.0 mg/dL 1.6-2.4 Serum or plasma troponin i.cardiac measu rement (mass/volume) - 05/20/19 15:08 Serum or plasma troponin i.cardiac measurement (mass/v olume) < ng/mL <0.028 Myoglobin, serum - 05/20/19 15:08 Myoglobin, serum 108.4 ng/mL 10.0-92.0 Lipase - 05/20/19 15:08 Lipase 15 U/L 8-78 Serum or plasma lithium measurement (mol es/volume) - 05/20/19 15:08 BNP PT < 10.0 <100.0 Serum or plasma C reactive protein measu rement (mass/volume) - 05/20/19 15:08 Serum or plasma C reactive protein measurement (mass/v olume) 1.34 mg/dL 0.00-0.50 Lipase - 05/20/19 17:09 Lipase 13 U/L 8-78 Serum or plasma troponin i.cardiac measu rement (mass/volume) - 05/20/19 17:09 Serum or plasma troponin i.cardiac measurement (mass/v olume) < ng/mL <0.028 Complete blood count (CBC) with automate d white blood cell (WBC) differential - 08/12/19 23:05 Blood leukocytes automated count (number/volume) 9.5 10*3/uL 4.3-11.0 Blood erythrocytes automated count (number/volume) 4.02 10*6/uL 4.35-5.85 Venous blood hemoglobin measurement (mass/volume) 12.0 g/dL 11.5-16.0 Blood hematocrit (volume fraction) 36 % 35-52 Automated erythrocyte mean corpuscular volume 90 [ foz_us] 80-99 Automated erythrocyte mean corpuscular h emoglobin (mass per erythrocyte) 30 pg 25-34 Automated erythrocyte mean corpuscular h emoglobin concentration measurement (mass/volume) 33 g/dL 32-36 Automated erythrocyte distribution width ratio 14. 1 % 10.0- 14.5 Automated blood platelet count (count/volume) 234 10*3/uL 130-400 Automated blood platelet mean volume measurement 9.7 [foz_us] 7.4-10.4 Automated blood neutrophils/100 leukocytes 59 % 42-75 Automated blood lymphocytes/100 leukocytes 30 % 12-44 Blood monocytes/100 leukocytes 9 % 0-12 Automated blood eosinophils/100 leukocytes 2 % 0-10 Automated blood basophils/100 leukocytes 1 % 0-10 Blood neutrophils automated count (number/volume) 5.6 10*3 1.8-7.8 Blood lymphocytes automated count (number/volume) 2.8 10*3 1.0-4.0 Blood monocytes automated count (number/volume) 0. 8 10*3 0.0-1.0 Automated eosinophil count 0.2 10*3/uL 0 .0-0.3 Automated blood basophil count (count/volume) 0.1 10*3/uL 0.0-0.1 Comprehensive metabolic panel - 08/12/19 23:05 Serum or plasma sodium measurement (moles/volume) 141 mmol/L 135-145 Serum or plasma potassium measurement (moles/volume) 3.0 mmol/L 3.6-5.0 Serum or plasma chloride measurement (moles/volume) 109 mmol/L 98-107 Carbon dioxide 19 mmol/L 21-32 Serum or plasma anion gap determination (moles/volume) 13 mmol/L 5-14 Serum or plasma urea nitrogen measurement (mass/volume ) 11 mg/dL 7-18 Serum or plasma creatinine measurement (mass/volume) 0.83 mg/dL 0.60-1.30 Serum or plasma urea nitrogen/creatinine mass ratio 13 NRG Serum or plasma creatinine measurement w ith calculation of estimated glomerular filtration rate > NRG Serum or plasma glucose measurement (mass/volume) 101 mg/dL 70-105 Serum or plasma calcium measurement (mass/volume) 8.5 mg/dL 8.5-10.1 Serum or plasma total bilirubin measurement (mass/volu me) 0.3 mg/dL 0.1-1.0 Serum or plasma alkaline phosphatase abbie surement (enzymatic activity/volume) 172 U/L 40-136 Serum or plasma aspartate aminotransfera se measurement (enzymatic activity/volume) 21 U/L 5-34 Serum or plasma alanine aminotransferase measurement (enzymatic activity/volume) 20 U/L 0-55 Serum or plasma protein measurement (mass/volume) 6.7 g/dL 6.4-8.2 Serum or plasma albumin measurement (mass/volume) 3.9 g/dL 3.2-4.5 CALCIUM CORRECTED 8.6 mg/dL 8.5-10.1 Serum or plasma ethanol measurement (mas s/volume) - 08/12/19 23:05 Serum or plasma ethanol measurement (mass/volume) 140 mg/dL <10 Complete blood count (CBC) with automate d white blood cell (WBC) differential - 08/14/19 23:29 Blood leukocytes automated count (number/volume) 9.2 10*3/uL 4.3-11.0 Blood erythrocytes automated count (number/volume) 3.92 10*6/uL 4.35-5.85 Venous blood hemoglobin measurement (mass/volume) 11.8 g/dL 11.5-16.0 Blood hematocrit (volume fraction) 36 % 35-52 Automated erythrocyte mean corpuscular volume 92 [ foz_us] 80-99 Automated erythrocyte mean corpuscular h emoglobin (mass per erythrocyte) 30 pg 25-34 Automated erythrocyte mean corpuscular h emoglobin concentration measurement (mass/volume) 33 g/dL 32-36 Automated erythrocyte distribution width ratio 14. 2 % 10.0- 14.5 Automated blood platelet count (count/volume) 185 10*3/uL 130-400 Automated blood platelet mean volume measurement 9.7 [foz_us] 7.4-10.4 Automated blood neutrophils/100 leukocytes 56 % 42-75 Automated blood lymphocytes/100 leukocytes 31 % 12-44 Blood monocytes/100 leukocytes 9 % 0-12 Automated blood eosinophils/100 leukocytes 4 % 0-10 Automated blood basophils/100 leukocytes 0 % 0-10 Blood neutrophils automated count (number/volume) 5.1 10*3 1.8-7.8 Blood lymphocytes automated count (number/volume) 2.9 10*3 1.0-4.0 Blood monocytes automated count (number/volume) 0. 8 10*3 0.0-1.0 Automated eosinophil count 0.4 10*3/uL 0 .0-0.3 Automated blood basophil count (count/volume) 0.0 10*3/uL 0.0-0.1 Comprehensive metabolic panel - 08/14/19 23:29 Serum or plasma sodium measurement (moles/volume) 142 mmol/L 135-145 Serum or plasma potassium measurement (moles/volume) 3.6 mmol/L 3.6-5.0 Serum or plasma chloride measurement (moles/volume) 107 mmol/L 98-107 Carbon dioxide 25 mmol/L 21-32 Serum or plasma anion gap determination (moles/volume) 10 mmol/L 5-14 Serum or plasma urea nitrogen measurement (mass/volume ) 15 mg/dL 7-18 Serum or plasma creatinine measurement (mass/volume) 1.05 mg/dL 0.60-1.30 Serum or plasma urea nitrogen/creatinine mass ratio 14 NRG Serum or plasma creatinine measurement w ith calculation of estimated glomerular filtration rate 52 NRG Serum or plasma glucose measurement (mass/volume) 108 mg/dL 70-105 Serum or plasma calcium measurement (mass/volume) 9.0 mg/dL 8.5-10.1 Serum or plasma total bilirubin measurement (mass/volu me) 0.3 mg/dL 0.1-1.0 Serum or plasma alkaline phosphatase abbie surement (enzymatic activity/volume) 193 U/L 40-136 Serum or plasma aspartate aminotransfera se measurement (enzymatic activity/volume) 13 U/L 5-34 Serum or plasma alanine aminotransferase measurement (enzymatic activity/volume) 16 U/L 0-55 Serum or plasma protein measurement (mass/volume) 6.6 g/dL 6.4-8.2 Serum or plasma albumin measurement (mass/volume) 3.8 g/dL 3.2-4.5 CALCIUM CORRECTED 9.2 mg/dL 8.5-10.1 Lipase - 08/14/19 23:29 Lipase 13 U/L 8-78 Encounters ACCT No. Visit Date/Time Discharge Status Pt. Type Provider Facility Loc./Unit Complaint [id number] 08/14/2019 21:30:00 020 01:16:00 DIS Outpatient JOHN VALENZUELA MD [facility] ER FELL/LEFT ABD P AIN,SOB [id number] 08/12/2019 23:03:00 020 00:39:00 DIS Emergency JOHN VALENZUELA MD [facility] ER FALL [id number] 05/20/2019 15:00:00 019 19:00:00 DIS Emergency TODD HUYNH MD [facility] ER CHEST PAIN [id number] 04/15/2019 16:56:00 19:37:00 DIS Emergency JOHN VALENZUELA MD [facility] ER RT KNEE PAIN
== END 2019-08-13 00:39 | disposition home or self-care (01) ==
LOC: EDUNIT# 23:01 → ER 23:03
DX: S00.83XA Contusion of other part of head, initial encounter (principal); S09.90XA Unspecified injury of head, initial encounter; Z88.8 Allergy status to other drugs, medicaments and biological substances; W18.39XA Other fall on same level, initial encounter; W22.8XXA Striking against or struck by other objects, initial encounter; Y92.511 Restaurant or cafe as the place of occurrence of the external cause
CPT/HCPCS: 36415; 70450; 72125; 80053; 80320; 85025; 96361; 96374; 96375

== ENCOUNTER 2019-08-14 21:29 | Emergency (ER) | payer MEDICARE, OTHER ==
[~2019-08-14] VITALS: Ht 170.1 cm; Wt 91.4 kg
--- NOTE | 2019-08-14 23:13 | ED General ---
General Chief Complaint: Chest Wall Stated Complaint: FELL/LEFT ABD PAIN,SOB Nursing Triage Note: PATIENT REPORTS BEING SEEN IN OUR ER LAST NIGHT D/T FALL. TODAY C/O LEFT SIDE "RIB PAIN" SHE HAS TAKEN TYLENOL 650 AT 1700 AND IBUPROFEN 800 @ 1800. REPORTS PAIN 8/10 AND ONLY THING THAT HAS HELPED IS HER HOME RX FOR XANAX WHICH HELPS HER SLEEP. Nursing Sepsis Screen: No Definite Risk Source of Information: Patient (ANA VERNON) History of Present Illness Date Seen by Provider: Aug 14, 2019 Time Seen by Provider: 22:51 Initial Comments This is a 64 y/o F who presents to the ED with L upper rib pain x1 day. Pt fell at a bar 3 days ago while intoxicated, had a hematoma to her L periorbital region, but denied pain or injury anywhere else at the time. Now she reports the rib pain started a day after and worsens w/ deep breathing and movement. Denies hemoptasis, SOB, CP, other MSK sx, or any other sx at this time. Timing/Duration: 1 Day Modifying Factors: improves with Immobilization; worse with Movement Associated Systoms: No Chest Pain, No Cough, No Diaphoresis, No Fever/Chills, No Nausea/Vomiting, No Shortness of Air, No Weakness (ANA VERNON) Allergies and Home Medications Allergies Coded Allergies: haloperidol (Verified Allergy, Severe, Anaphylaxis, 04/15/19) Home Medications Hydrocodone Bit/Acetaminophen 1 Tab Tab, 1 EACH PO Q4-6HR PRN for PAIN-MODERATE Prescribed by: JOHN VALENZUELA on 04/15/191913 Tramadol HCl 50 Mg Tablet, 50 MG PO Q6H PRN for PAIN-SEVERE (8-10) Prescribed by: ASIA CLEANING on 05/20/19 1835 Patient Home Medication List Home Medication List Reviewed: Yes (JOHN VALENZUELA MD) Review of Systems Review of Systems Constitutional: No chills, No diaphoresis, No fever EENTM: no symptoms reported Respiratory: No cough, No dyspnea on exertion, No hemoptysis, No short of breath Cardiovascular: No chest pain Gastrointestinal: No abdominal pain, No constipation, No hematemesis, No nausea, No vomiting Skin: no symptoms reported (ANA VERNON) Cardiovascular: chest pain (left low lateral chest wall) Gastrointestinal: LUQ, LLQ Skin: change in color; No lesions (JOHN VALENZUELA MD) Past Hurzhfj-Vmfqzn-Pjiqbb Hx Past Med/Social Hx: Reviewed Nursing Past Med/Soc Hx (JOHN VALENZUELA MD) Patient Social History Alcohol Beverage of Choice: Other Recent Foreign Travel: No Contact w/Someone Who Travel: No Recent Infectious Disease Expo: No Recent Hopitalizations: No (ANA VERNON [facility]) Immunizations Up To Date Tetanus Booster (TDap): Unknown (ANA VERNON) Seasonal Allergies Seasonal Allergies: No (ANA VERNON) Past Medical History Surgeries: Yes Appendectomy, Section, Gallbladder, Orthopedic, Renal Respiratory: No Cardiac: Yes Hypertension Neurological: Yes Neuropathy : No 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 oz. kg; 31.00 BMI Method: General Appearance: No Apparent Distress, WD/WN Neck: Normal Inspection, Non Tender Respiratory: Chest Non Tender, Lungs Clear, Normal Breath Sounds, No Accessory Muscle Use, No Respiratory Distress, Other (chest wall tenderness to palpation, L) Cardiovascular: Regular Rate, Rhythm, No Edema, No Gallop, No JVD, No Murmur, Normal Peripheral Pulses, Bradycardia Back: No CVA Tenderness, No Vertebral Tenderness Neurologic/Psychiatric: Alert, Oriented x3 Skin: Normal Color, Warm/Dry, Other (pt has large area of bruising over L mid abdomen) Lymphatic: No Adenopathy ([facility]) General Appearance: No Apparent Distress, WD/WN HEENT: PERRL/EOMI, Pharynx Normal Respiratory: Lungs Clear, Normal Breath Sounds Cardiovascular: Regular Rate, Rhythm, No Murmur Gastrointestinal: Soft, Tenderness (left upper quadrant and left lower quadrant over ecchymotic area) Back: No CVA Tenderness, No Vertebral Tenderness Neurologic/Psychiatric: Alert, Oriented x3 Skin: Warm/Dry, Ecchymosis (left flank and lower quadrant with some extension to the left upper quadrant) (JOHN VALENZUELA MD) Progress/Results/Core Measures Suspected Sepsis Recent Fever Within 48 Hours: No Infection Criteria Present: None New/Unexplained Altered Menta: No Sepsis Screen: No Definite Risk SIRS Temperature: Pulse: 54 Respiratory Rate: 18 Blood Pressure 175 /78 Mean: 110 ([facility]) Results/Orders Lab Results Laboratory Tests Test 08/14/19 23:29 Range/Units White Blood Count 9.2 4.3-11.0 10^3/uL Red Blood Count 3.92 L 4.35-5.85 10^6/uL Hemoglobin 11.8 11.5-16.0 G/DL Hematocrit 36 35-52 % Mean Corpuscular Volume 92 80-99 FL Mean Corpuscular Hemoglobin 30 25-34 PG Mean Corpuscular Hemoglobin Concent 33 32-36 G/DL Red Cell Distribution Width 14.2 10.0-14.5 % Platelet Count 185 130-400 10^3/uL Mean Platelet Volume 9.7 7.4-10.4 FL Neutrophils (%) (Auto) 56 42-75 % Lymphocytes (%) (Auto) 31 12-44 % Monocytes (%) (Auto) 9 0-12 % Eosinophils (%) (Auto) 4 0-10 % Basophils (%) (Auto) 0 0-10 % Neutrophils # (Auto) 5.1 1.8-7.8 X 10^3 Lymphocytes # (Auto) 2.9 1.0-4.0 X 10^3 Monocytes # (Auto) 0.8 0.0-1.0 X 10^3 Eosinophils # (Auto) 0.4 H 0.0-0.3 10^3/uL Basophils # (Auto) 0.0 0.0-0.1 10^3/uL Sodium Level 142 135-145 MMOL/L Potassium Level 3.6 3.6-5.0 MMOL/L Chloride Level 107 98-107 MMOL/L Carbon Dioxide Level 25 21-32 MMOL/L Anion Gap 10 5-14 MMOL/L Blood Urea Nitrogen 15 7-18 MG/DL Creatinine 1.05 0.60-1.30 MG/DL Estimat Glomerular Filtration Rate 52 BUN/Creatinine Ratio 14 Glucose Level 108 H 70-105 MG/DL Calcium Level 9.0 8.5-10.1 MG/DL Corrected Calcium 9.2 8.5-10.1 MG/DL Total Bilirubin 0.3 0.1-1.0 MG/DL Aspartate Amino Transf (AST/SGOT) 13 5-34 U/L Alanine Aminotransferase (ALT/SGPT) 16 0-55 U/L Alkaline Phosphatase 193 H 40-136 U/L Total Protein 6.6 6.4-8.2 GM/DL Albumin 3.8 3.2-4.5 GM/DL Lipase 13 8-78 U/L (JOHN VALENZUELA MD) My Orders Orders - JOHN VALENZUELA MD Cbc With Automated Diff (08/14/19 23:25) Comprehensive Metabolic Panel (08/14/19 23:25) Lipase (08/14/19 23:25) Ed Iv/Invasive Line Start (08/14/19 23:25) Ns Iv 1000 Ml (Sodium Chloride 0.9%) (08/14/19 23:25) Fentanyl Injection (Sublimaze Injection (08/14/19 23:25) Ct Chest/Abdomen/Pelvis W (08/14/19 23:25) Iohexol Injection (Omnipaque 350 Mg/Ml 1 (08/15/19 00:15) Received Contrast (Hold Metformin- Contr (08/15/19 00:15) Ns (Ivpb) (Sodium Chloride 0.9% Ivpb Bag (08/15/19 00:15) Hydrocodone/Apap 5/325 Tablet (Lortab 5 (08/15/19 00:45) (JOHN VALENZUELA MD) Medications Given in ED Current Medications Medications Dose Ordered Sig/Evelyn Route Start Time Stop Time Status Last Admin Dose Admin Iohexol 100 ml ONCE ONCE IV 08/15/19 00:15 08/15/19 00:16 DC 08/15/19 00:13 100 ML Sodium Chloride 100 ml ONCE ONCE IV 08/15/19 00:15 08/15/19 00:16 DC 08/15/19 00:13 80 ML Sodium Chloride 1,000 ml @ 0 mls/hr Q0M ONCE IV 08/14/19 23:25 08/14/19 23:29 DC 08/14/19 23:36 0 MLS/HR (JOHN VALENZUELA MD) Vital Signs/I&O 08/14/19 22:37 Temp 36.4 Pulse 54 Resp 18 B/P (MAP) 175/78 (110) Pulse Ox 97 O2 Delivery Room Air (JOHN VALENZUELA MD) Vital Signs/I&O Capillary Refill : Less Than 3 Seconds (ANA VERNON) Blood Pressure Mean: 110 Progress Note : Time: 22:54 Progress Note Seen and evaluated. XR of L ribs were ordered. CT ordered to evaluate for possible spleen injury (ANA VERNON) Progress Note : Progress Note I have seen and evaluated the patient and agree with above except as indicated. I have directed the plan of care. Patient was seen a few days ago for fall and did not have any abdominal pain at that point. Labs at that point did not reveal any abdominal pathology. Returns today with left lower chest wall left upper abdominal pain. Bruising noted to the left side of the abdomen. Rib series does not demonstrate any fractures. CT chest, abdomen and pelvis ordered to rule out intra-abdominal and thoracic pathology. Fentanyl 50 g IV ordered. LR 1 L bolus. Monitor patient. 0039: CT results notes seventh and eighth nondisplaced rib fractures but no other acute findings. [place] 5/325 one tab by mouth given. Discharged home with return precautions. Patient verbalize understanding instructions and agreement with plan. (JOHN VALENZUELA MD) Diagnostic Imaging Diagonstic Imaging: Xray Plain Films/CT/US/NM/MRI: chest Comments Left ribs show no acute fracture Diagonstic Imaging: CT Plain Films/CT/US/NM/MRI: chest, abdomen, pelvis Comments Nondisplaced left seventh and eighth rib fractures but otherwise no acute findings. CT abdomen and pelvis shows no acute findings. Reviewed: Reviewed Night [facility] Study, Reviewed by Me (JOHN VALENZUELA MD) Departure Impression Primary Impression: Fracture of two ribs of left side Qualified Codes: S22.42XA - Multiple fractures of ribs, left side, initial encounter for closed fracture Disposition: HOME, SELF-CARE Condition: Improved Departure-Patient Inst. Decision time for Depature: 00:41 (JOHN VALENZUELA MD) Referrals: TRINITY NEGRO DO (PCP/Family) Primary Care Physician Patient Instructions: Rib Fractures in Adults Add. Discharge Instructions: All discharge instructions reviewed with patient and/or family. Voiced understanding. Take medications as directed. Use incentive spirometer as directed by respiratory therapy using it several times per hour while awake. If you're not taking the prescribed pain medicine then you may take Tylenol/acetaminophen 1000 mg every 8 hours as needed for pain. Do not take both at the same time as they both have acetaminophen in them. Return for worsening, fever, vomiting, weakness, breathing problems or other concerns as needed. Follow-up with your Dr. in a few days for recheck. Scripts Hydrocodone/Acetaminophen ([place] 5-325 Tablet) 1 Each Tablet 1 TAB PO Q4-6HR for Pain MDD 10 TABS for 3 Days, #12 TAB 0 Refills Prov: JOHN VALENZUELA MD 08/15/19 ANA VERNON [facility] Aug 14, 2019 23:13 JOHN VALENZUELA MD Aug 15, 2019 00:43
[2019-08-14] MEDS ORDERED: NS IV 1000 ML 1,000 ML IV ONE (23:25)
[2019-08-14] MEDS ORDERED: fentaNYL INJECTION 100 MCG/2 ML AMP IVP STA (23:25)
[2019-08-14 23:36] LABS: BASOPHILS % (AUTO) 0 % (0-10); EOSINOPHILS # (AUTO) 0.4 10^3/uL (0.0-0.3); EOSINOPHILS % (AUTO) 4 % (0-10); HEMATOCRIT 36 % (35-52); HEMOGLOBIN 11.8 G/DL (11.5-16.0); LYMPHOCYTES # (AUTO) 2.9 X 10^3 (1.0-4.0); LYMPHOCYTES % (AUTO) 31 % (12-44); MEAN CORPUSCULAR HEMOGLOBIN 30 PG (25-34); MEAN CORPUSCULAR HGB CONC 33 G/DL (32-36); MEAN CORPUSCULAR VOLUME 92 FL (80-99); MEAN PLATELET VOLUME 9.7 FL (7.4-10.4); MONOCYTES # (AUTO) 0.8 X 10^3 (0.0-1.0); MONOCYTES % (AUTO) 9 % (0-12); NEUTROPHILS # (AUTO) 5.1 X 10^3 (1.8-7.8); NEUTROPHILS % (AUTO) 56 % (42-75); PLATELET COUNT 185 10^3/uL (130-400); RED CELL DISTRIBUTION WIDTH 14.2 % (10.0-14.5); WHITE BLOOD COUNT 9.2 10^3/uL (4.3-11.0)
[2019-08-14 23:58] LABS: ALBUMIN 3.8 GM/DL (3.2-4.5); BILIRUBIN,TOTAL 0.3 MG/DL (0.1-1.0); CREATININE SERUM 1.05 MG/DL (0.60-1.30); POTASSIUM 3.6 MMOL/L (3.6-5.0); TOTAL PROTEIN 6.6 GM/DL (6.4-8.2)
[2019-08-15] MEDS ORDERED: HOLD METFORMIN - RECEIVED CONTRAST 20 ML VIAL IV SCH (00:15)
[2019-08-15] MEDS ORDERED: NS 100 ML (IVPB) BAG IV ONE (00:15)
[2019-08-15] MEDS ORDERED: IOHEXOL 350 MG/ML 100 ML (OMNIPAQUE 350) VIAL IV ONE (00:15)
[2019-08-15] MEDS ORDERED: HYDR-4226 PO (00:44)
[2019-08-15] MEDS ORDERED: HYDROcodone/APAP 5 MG/325 MG (LORTAB) TAB PO ONE (00:45)
[2019-08-15 01:14] VITALS: BP 162/78
--- NOTE | 2019-08-15 06:22 | Diagnostic Imaging Report ---
PROCEDURE: CT chest, abdomen, and pelvis with contrast. TECHNIQUE: Multiple contiguous axial images were obtained through the chest, abdomen, and pelvis after the administration of intravenous contrast. Auto Exposure Controls were utilized during the CT exam to meet ALARA standards for radiation dose reduction. INDICATION: Trauma, fall with left-sided rib pain. COMPARISON: None available. FINDINGS: Chest: Normal thyroid. No subclavicular axillary lymphadenopathy. No evidence of mediastinal hemorrhage. No mediastinal or hilar lymphadenopathy. Normal heart size without pericardial effusion. Normal caliber thoracic aorta without evidence of acute traumatic injury. No pleural effusion or pneumothorax. No pulmonary consolidations to indicate laceration or contusion. Minimal nodular atelectasis within the medial aspect of the right middle lobe. There is a hairline nondisplaced fracture of the lateral aspect of the 8th and 9th ribs. No sternal fracture. No fracture of the clavicles. Abdomen and pelvis: No free intraperitoneal air or fluid. The liver and spleen enhance normally without evidence of subcapsular hematoma or laceration. The adrenals and pancreas are normal. The kidneys enhance symmetrically without evidence of traumatic injury. There is a cyst in the lower pole of the left kidney. Additionally, there is a cluster of stones in the lower pole of the left kidney with the largest measuring 1.2 cm. Delayed imaging demonstrates opacification of normal caliber ureters and the urinary bladder without evidence of ureteral injury or bladder rupture. No dilated loops of bowel. Normal caliber abdominal aorta without evidence of retroperitoneal hemorrhage. No abdominal or pelvic lymphadenopathy. No acute fracture of the pelvis or proximal femurs. IMPRESSION: CT CHEST 1. Acute nondisplaced hairline fractures in the lateral aspect of the left 7th and 8th ribs. 2. No additional injury in the chest. CT ABDOMEN and PELVIS 1. No acute traumatic injury in the abdomen and pelvis. Findings are in agreement with the preliminary report. Dictated by: Dictated on workstation # [id number]
--- NOTE | 2019-08-15 06:44 | Diagnostic Imaging Report ---
INDICATION: Left rib pain. COMPARISON: CT abdomen and pelvis performed same day. TECHNIQUE: 3 views of the left ribs were obtained. FINDINGS AND IMPRESSION: 1. The patient's nondisplaced hairline fractures of the lateral left 7th and 8th ribs are not well seen radiographically, and are detailed on the CT chest report from same day. 2. No pneumothorax, pleural effusion or pulmonary contusion. Dictated by: Dictated on workstation # [id number]
== END 2019-08-15 01:16 | disposition home or self-care (01) ==
LOC: EDUNIT# 21:29 → ER 21:30
DX: S22.42XA Multiple fractures of ribs, left side, initial encounter for closed fracture (principal); Z88.8 Allergy status to other drugs, medicaments and biological substances; W19.XXXA Unspecified fall, initial encounter; Y92.511 Restaurant or cafe as the place of occurrence of the external cause
CPT/HCPCS: 36415; 71100; 71260; 74177; 80053; 83690; 85025; 94664; 96361; 96374